=== PATIENT | male | born 1935 | race Caucasian/White ===

== ENCOUNTER 2022-05-21 02:06 | Inpatient (IN) ==
[2022-05-21] MEDS ORDERED: cefTRIAXone 1,000 MG in SODIUM CHLORIDE 0.9% 100 ML IV STA (02:22)
[2022-05-21] MEDS ORDERED: ONDANSETRON 4 MG/2 ML VIAL IV STA (02:22)
[2022-05-21] MEDS ORDERED: methylPREDNISolone SOD SUC 125 MG/2 ML VIAL IV STA (02:22)
[2022-05-21] MEDS ORDERED: ALBUTEROL/IPRATROPIUM 3 ML NEB RESP TX STA (02:22)
[2022-05-21 02:42] LABS: Basophils # 0.1 10*3/uL (0.0-0.2); Basophils % 0.6 % (0.0-0.8); Eosinophils # 0.3 10*3/uL (0.0-0.87); Eosinophils % 1.5 % (0.00-10.9); Hematocrit 36.6 VOL% (42.0-52.0); Hemoglobin 11.6 GM/DL (14.0-18.0); Immature Granulocytes % 0.6 %; Lymphocytes % 5.4 % (21.2-54.2); Mean Corpuscular HGB Conc 31.7 GM/DL (32-36); Mean Corpuscular Volume 84.1 FL (87-102); Mean Platelet Volume 12.1 FL (9.6-12.0); Monocytes # 1.4 10*3/uL (0.11-0.8); Monocytes % 7.7 % (1.7-12.7); Neutrophils % 84.2 % (38.7-73.9); Platelet Count 217 T/CUMM (130-400); Red Blood Count 4.35 MC/CUMM (3.8-5.5); Red Cell Distribution Width 16.6 % (9.3-17.3); White Blood Count 17.9 T/CUMM (4-12)
[2022-05-21] MEDS ORDERED: SODIUM CHLORIDE 0.9% 1,000 ML IV STA (02:47)
[2022-05-21 02:50] LABS: Arterial Base Excess iSTAT 15 MMOL/L (-2.5-2.5); Arterial Bicarbonate iSTAT 40.6 MMOL/L (20-26); Arterial O2 Saturation iSTAT 89 % (95-100); Arterial PCO2 iSTAT 55 MM HG (35-48); Arterial PO2 iSTAT 54 MM HG (80-95); Arterial Total CO2 iSTAT 42 MMO/L (23-27); Arterial pH iSTAT 7.476 (7.35-7.45)
[2022-05-21] MEDS ORDERED: ALBUTEROL NEB SOLN 5 MG/ML 20 ML/BOTTLE CONT NEB SCH (03:00)
[2022-05-21] MEDS ORDERED: ALBUTEROL 2.5 MG/3 ML NEB RESP TX ONE (03:01)
[2022-05-21] MEDS ORDERED: PIPERACILLIN/TAZOBACTAM 3,375 MG in SODIUM CHLORIDE 0.9% 100 ML IV STA (03:04)
[2022-05-21 03:05] LABS: Alanine Aminotransferase 14 U/L (16-61); Albumin 3.1 G/DL (3.4-5.0); Alkaline Phosphatase 102 U/L (45-117); Aspartate Amino Transferase 14 U/L (0-37); Bilirubin,Total < 0.39 MG/DL (0.20-1.00); Blood Urea Nitrogen 22 MG/DL (7-18); Calcium 8.9 MG/DL (8.5-10.1); Carbon Dioxide 39 MMOL/L (21-32); Chloride 92 MMOL/L (98-107); Glucose 122 MG/DL (74-106); Osmolality,Calculated 273.1 MOS/KG (273-304); Potassium 3.7 MMOL/L (3.5-5.1); Sodium 135 MMOL/L (136-145); Total Protein 6.5 G/DL (6.4-8.2)
[2022-05-21] MEDS ORDERED: ENOXAPARIN 100 MG/ML SYRINGE SUBCUT STA (03:11)
[2022-05-21 03:16] LABS: Bacteria,Urine Occasional /HPF (Few); Hyaline Casts,Urine 1 /LPF (0-3); RBC,Urine 2 /HPF (0-4)
[2022-05-21 03:17] LABS: Bilirubin,Urine Negative (Negative); Blood, Urine Negative (Negative); Glucose,Urine (UA) Negative (Negative); Ketones,Urine Negative (Negative); Nitrite,Urine Positive (Negative); Protein,Urine Trace mg/dL (Negative); Urine Appearance SL CLOUDY (Clear); Urine Color Yellow (Yellow); Urine Specific Gravity 1.015 (1.001-1.035); Urine Urobilinogen 0.2 eU/dL (<2.0); Urine pH 8.5 (4.5-8.0)
[2022-05-21] MEDS ORDERED: NOREPINEPHRINE 8 MG in SODIUM CHLORIDE 0.9% 242 ML IV SCH (03:22)
[2022-05-21] MEDS ORDERED: MEROPENEM 500 MG in SODIUM CHLORIDE 0.9% 100 ML IV ONE (04:41)
[2022-05-21] MEDS ORDERED: SODIUM CHLORIDE 0.9% 500 ML IV ONE (04:53)
[2022-05-21] MEDS: FAMOTIDINE 20 MG/2 ML VIAL IV SCH ×2 (05:18→20:25)
[2022-05-21] MEDS: SODIUM CHLORIDE 0.9% 1,000 ML IV SCH ×2 (05:23→23:36)
[2022-05-21] MEDS: ALBUTEROL 2.5 MG/3 ML NEB RESP TX PRN (07:52)
[2022-05-21] MEDS: ALBUTEROL/IPRATROPIUM 3 ML NEB RESP TX SCH ×3 (08:10→19:40)
[2022-05-21] MEDS: LEVOFLOXACIN INJ 750 MG/150 ML PREMIX IV SCH (10:13)
[2022-05-21] MEDS ORDERED: IPRATROPIUM 500 MCG/2.5 ML NEB RESP TX ONE (13:14)
[2022-05-21] MEDS ORDERED: ALBUTEROL 2.5 MG/3 ML NEB RESP TX PRN (16:18)
[2022-05-21] MEDS ORDERED: diphenhydrAMINE CAP 25 MG CAPSULE PO PRN (16:18)
[2022-05-21] MEDS ORDERED: SENNA 8.6 MG TABLET PO PRN (16:18)
[2022-05-21] MEDS ORDERED: HydrOXYzine PAMOATE 25 MG CAPSULE PO PRN (16:18)
[2022-05-21] MEDS ORDERED: MAGNESIUM HYDROXIDE SUSP 30 ML UDCUP PO PRN (16:18)
[2022-05-21] MEDS ORDERED: CARBOXYMETHYLCELLULOSE 1% OPH SOLN BOTH EYES PRN (16:18)
[2022-05-21] MEDS: LACTULOSE 20 GM/30 ML UDCUP PO SCH (16:55)
[2022-05-21] MEDS: prednisoLONE 15 MG/5 ML ORAL.SYR PO SCH (19:06)
[2022-05-21] MEDS: TAMSULOSIN 0.4 MG CAPSULE PO SCH (20:23)
[2022-05-21] MEDS: PREGABALIN 75 MG CAPSULE PO SCH (20:23)
[2022-05-21] MEDS: POLYETHYLENE GLYCOL POWDER 17 GM PACK PO SCH (20:24)
[2022-05-21] MEDS: MAGNESIUM HYDROXIDE SUSP 30 ML UDCUP PO SCH (20:24)
[2022-05-21] MEDS: PRIMIDONE 50 MG TABLET PO SCH (20:24)
[2022-05-21] MEDS: BACLOFEN 10 MG TABLET PO SCH (20:24)
[2022-05-21] MEDS: DULoxetine 30 MG CAPSULE PO SCH (20:24)
[2022-05-22] MEDS: ALBUTEROL/IPRATROPIUM 3 ML NEB RESP TX SCH ×4 (00:40→20:38)
[2022-05-22 05:06] LABS: Basophils # 0.1 10*3/uL (0.0-0.2); Basophils % 0.3 % (0.0-0.8); Eosinophils % 0.2 % (0.00-10.9); Hematocrit 31.6 VOL% (42.0-52.0); Hemoglobin 10.1 GM/DL (14.0-18.0); Immature Granulocytes % 0.5 %; Immature Granulocytes Absolute 0.12 #; Lymphocytes % 4.6 % (21.2-54.2); Mean Corpuscular Volume 84.5 FL (87-102); Mean Platelet Volume 12.3 FL (9.6-12.0); Monocytes % 4.6 % (1.7-12.7); Neutrophils % 89.8 % (38.7-73.9); Platelet Count 190 T/CUMM (130-400); Red Blood Count 3.74 MC/CUMM (3.8-5.5); Red Cell Distribution Width 16.8 % (9.3-17.3); White Blood Count 22.3 T/CUMM (4-12)
[2022-05-22 05:27] LABS: Alanine Aminotransferase 13 U/L (16-61); Albumin 2.6 G/DL (3.4-5.0); Alkaline Phosphatase 77 U/L (45-117); Aspartate Amino Transferase 12 U/L (0-37); Bilirubin,Total < 0.39 MG/DL (0.20-1.00); Blood Urea Nitrogen 21 MG/DL (7-18); Calcium 8.8 MG/DL (8.5-10.1); Carbon Dioxide 32 MMOL/L (21-32); Chloride 98 MMOL/L (98-107); Glucose 139 MG/DL (74-106); Osmolality,Calculated 274.1 MOS/KG (273-304); Sodium 135 MMOL/L (136-145)
[2022-05-22 06:35] LABS: Hypochromia Slight; Lymphocytes 4 % (20-55); Microcytosis Slight; Platelet Estimate Adequate; Total Cells Counted 100
[2022-05-22] MEDS: ALBUTEROL 2.5 MG/3 ML NEB RESP TX PRN ×2 (07:36→13:14)
[2022-05-22] MEDS: LEVOFLOXACIN INJ 750 MG/150 ML PREMIX IV SCH (08:55)
[2022-05-22] MEDS: MULTIVITAMIN (BEROCCA) TABLET PO SCH (09:15)
[2022-05-22] MEDS: PREGABALIN 75 MG CAPSULE PO SCH ×2 (09:15→22:51)
[2022-05-22] MEDS: BACLOFEN 10 MG TABLET PO SCH ×2 (09:15→22:51)
[2022-05-22] MEDS: TAMSULOSIN 0.4 MG CAPSULE PO SCH ×2 (09:15→22:51)
[2022-05-22] MEDS: ASPIRIN EC 81 MG TABLET PO SCH (09:15)
[2022-05-22] MEDS: LACTULOSE 20 GM/30 ML UDCUP PO SCH (09:16)
[2022-05-22] MEDS: prednisoLONE 15 MG/5 ML ORAL.SYR PO SCH (09:16)
[2022-05-22] MEDS: FAMOTIDINE 20 MG/2 ML VIAL IV SCH ×2 (09:17→22:51)
[2022-05-22] MEDS: POLYETHYLENE GLYCOL POWDER 17 GM PACK PO SCH ×2 (09:18→22:51)
[2022-05-22] MEDS: FLUTICASONE 50 MCG NASAL SPRAY 16 GM BOTTLE BOTH NARES SCH (09:28)
[2022-05-22] MEDS: NON-FORMULARY MEDICATION (Fluticasone Furoate-Vilanterol [Breo Ellipta] 100-25 mcg/dose Bl INH SCH (10:42)
[2022-05-22] MEDS: SODIUM CHLORIDE 0.9% 1,000 ML IV SCH ×2 (10:46→13:19)
[2022-05-22] MEDS: ACETAMINOPHEN 500 MG TABLET PO PRN (12:38)
[2022-05-22] MEDS: BISACODYL 10 MG SUPP RECTAL PRN (17:26)
[2022-05-22] MEDS ORDERED: IPRATROPIUM 500 MCG/2.5 ML NEB RESP TX ONE (19:13)
[2022-05-22] MEDS: DULoxetine 30 MG CAPSULE PO SCH (22:50)
[2022-05-22] MEDS: MAGNESIUM HYDROXIDE SUSP 30 ML UDCUP PO SCH (22:51)
[2022-05-22] MEDS: PRIMIDONE 50 MG TABLET PO SCH (22:51)
[2022-05-23] MEDS: ALBUTEROL/IPRATROPIUM 3 ML NEB RESP TX SCH ×4 (00:13→20:43)
[2022-05-23] MEDS: SODIUM CHLORIDE 0.9% 1,000 ML IV SCH ×3 (01:24→14:50)
[2022-05-23] MEDS: ACETAMINOPHEN 500 MG TABLET PO PRN ×2 (01:50→17:52)
[2022-05-23 04:10] LABS: Basophils # 0.1 10*3/uL (0.0-0.2); Basophils % 0.4 % (0.0-0.8); Eosinophils # 0.2 10*3/uL (0.0-0.87); Eosinophils % 1.3 % (0.00-10.9); Hemoglobin 9.6 GM/DL (14.0-18.0); Immature Granulocytes % 0.7 %; Immature Granulocytes Absolute 0.11 #; Lymphocytes # 0.9 10*3/uL (1.4-4.0); Lymphocytes % 6.2 % (21.2-54.2); Mean Corpuscular Volume 83.8 FL (87-102); Mean Platelet Volume 11.9 FL (9.6-12.0); Monocytes # 1.1 10*3/uL (0.11-0.8); Monocytes % 7.3 % (1.7-12.7); Neutrophils % 84.1 % (38.7-73.9); Platelet Count 171 T/CUMM (130-400); Red Blood Count 3.58 MC/CUMM (3.8-5.5); Red Cell Distribution Width 16.7 % (9.3-17.3); White Blood Count 15.1 T/CUMM (4-12)
[2022-05-23 04:34] LABS: Albumin 2.3 G/DL (3.4-5.0); Bilirubin,Total 0.4 MG/DL (0.20-1.00); Calcium 8.6 MG/DL (8.5-10.1); Osmolality,Calculated 269.2 MOS/KG (273-304); Potassium 3.6 MMOL/L (3.5-5.1); Total Protein 5.8 G/DL (6.4-8.2)
[2022-05-23] MEDS: PREGABALIN 75 MG CAPSULE PO SCH ×2 (09:30→21:09)
[2022-05-23] MEDS: ASPIRIN EC 81 MG TABLET PO SCH (09:30)
[2022-05-23] MEDS: LEVOFLOXACIN INJ 750 MG/150 ML PREMIX IV SCH (09:30)
[2022-05-23] MEDS: MULTIVITAMIN (BEROCCA) TABLET PO SCH (09:30)
[2022-05-23] MEDS: prednisoLONE 15 MG/5 ML ORAL.SYR PO SCH (09:30)
[2022-05-23] MEDS: BACLOFEN 10 MG TABLET PO SCH ×2 (09:30→21:09)
[2022-05-23] MEDS: TAMSULOSIN 0.4 MG CAPSULE PO SCH ×2 (09:30→21:09)
[2022-05-23] MEDS: FLUTICASONE 50 MCG NASAL SPRAY 16 GM BOTTLE BOTH NARES SCH (09:30)
[2022-05-23] MEDS: NON-FORMULARY MEDICATION (Fluticasone Furoate-Vilanterol [Breo Ellipta] 100-25 mcg/dose Bl INH SCH (09:48)
[2022-05-23] MEDS: FAMOTIDINE 20 MG/2 ML VIAL IV SCH ×2 (09:48→21:10)
[2022-05-23] MEDS: POLYETHYLENE GLYCOL POWDER 17 GM PACK PO SCH ×2 (09:49→20:54)
[2022-05-23] MEDS: LACTULOSE 20 GM/30 ML UDCUP PO SCH (09:49)
[2022-05-23] MEDS: ONDANSETRON 4 MG/2 ML VIAL IV PRN (12:10)
[2022-05-23] MEDS: ALBUTEROL 2.5 MG/3 ML NEB RESP TX PRN (14:06)
[2022-05-23] MEDS: ENOXAPARIN 40 MG/0.4 ML SYRINGE SUBCUT SCH (16:40)
[2022-05-23] MEDS: MAGNESIUM HYDROXIDE SUSP 30 ML UDCUP PO SCH (20:54)
[2022-05-23] MEDS: DULoxetine 30 MG CAPSULE PO SCH (21:09)
[2022-05-23] MEDS: PRIMIDONE 50 MG TABLET PO SCH (21:09)
[2022-05-23] MEDS ORDERED: ALUM/MAG/SIMETH/LIDO VISC 1:1 30 ML BOTTLE PO ONE (23:24)
[2022-05-24] MEDS: ALBUTEROL/IPRATROPIUM 3 ML NEB RESP TX SCH ×4 (00:45→20:40)
[2022-05-24] MEDS: SODIUM CHLORIDE 0.9% 1,000 ML IV SCH ×2 (04:10→12:20)
[2022-05-24 04:42] LABS: Basophils # 0.1 10*3/uL (0.0-0.2); Basophils % 0.8 % (0.0-0.8); Eosinophils # 0.2 10*3/uL (0.0-0.87); Eosinophils % 2.2 % (0.00-10.9); Hematocrit 33.9 VOL% (42.0-52.0); Hemoglobin 10.6 GM/DL (14.0-18.0); Immature Granulocytes % 0.6 %; Immature Granulocytes Absolute 0.06 #; Lymphocytes # 1.1 10*3/uL (1.4-4.0); Lymphocytes % 10.7 % (21.2-54.2); Mean Corpuscular HGB Conc 31.3 GM/DL (32-36); Mean Corpuscular Volume 85.6 FL (87-102); Mean Platelet Volume 12.2 FL (9.6-12.0); Monocytes # 0.8 10*3/uL (0.11-0.8); Monocytes % 7.9 % (1.7-12.7); Neutrophils % 77.8 % (38.7-73.9); Platelet Count 184 T/CUMM (130-400); Red Blood Count 3.96 MC/CUMM (3.8-5.5); Red Cell Distribution Width 16.2 % (9.3-17.3); White Blood Count 10.6 T/CUMM (4-12)
[2022-05-24] MEDS: ONDANSETRON 4 MG/2 ML VIAL IV PRN ×2 (06:06→14:48)
[2022-05-24] MEDS: FAMOTIDINE 20 MG/2 ML VIAL IV SCH (10:01)
[2022-05-24] MEDS: MULTIVITAMIN (BEROCCA) TABLET PO SCH (10:02)
[2022-05-24] MEDS: BACLOFEN 10 MG TABLET PO SCH ×2 (10:02→21:44)
[2022-05-24] MEDS: PREGABALIN 75 MG CAPSULE PO SCH ×2 (10:02→21:45)
[2022-05-24] MEDS: TAMSULOSIN 0.4 MG CAPSULE PO SCH ×2 (10:02→21:45)
[2022-05-24] MEDS: ASPIRIN EC 81 MG TABLET PO SCH (10:02)
[2022-05-24] MEDS: prednisoLONE 15 MG/5 ML ORAL.SYR PO SCH (10:03)
[2022-05-24] MEDS: POLYETHYLENE GLYCOL POWDER 17 GM PACK PO SCH ×2 (10:03→21:45)
[2022-05-24] MEDS: LEVOFLOXACIN INJ 750 MG/150 ML PREMIX IV SCH (10:03)
[2022-05-24] MEDS: FLUTICASONE 50 MCG NASAL SPRAY 16 GM BOTTLE BOTH NARES SCH (10:03)
[2022-05-24] MEDS: LACTULOSE 20 GM/30 ML UDCUP PO SCH (10:03)
[2022-05-24] MEDS: NON-FORMULARY MEDICATION (Fluticasone Furoate-Vilanterol [Breo Ellipta] 100-25 mcg/dose Bl INH SCH (10:03)
[2022-05-24] MEDS: ACETAMINOPHEN 500 MG TABLET PO PRN (12:31)
[2022-05-24] MEDS: ENOXAPARIN 40 MG/0.4 ML SYRINGE SUBCUT SCH (14:49)
[2022-05-24] MEDS: MORPHINE 2 MG/1 ML SYRINGE IV PRN ×2 (14:49→21:50)
[2022-05-24] MEDS: FLUCONAZOLE INJ 200 MG/100 ML PREMIX IV SCH (14:50)
[2022-05-24] MEDS: MAGNESIUM HYDROXIDE SUSP 30 ML UDCUP PO SCH (21:45)
[2022-05-24] MEDS: PRIMIDONE 50 MG TABLET PO SCH (21:45)
[2022-05-24] MEDS: DULoxetine 30 MG CAPSULE PO SCH (21:45)
[2022-05-24] MEDS: FAMOTIDINE 20 MG TABLET PO SCH (22:08)
[2022-05-25] MEDS: ALBUTEROL/IPRATROPIUM 3 ML NEB RESP TX SCH ×4 (01:07→19:04)
[2022-05-25] MEDS: SODIUM CHLORIDE 0.9% 1,000 ML IV SCH ×2 (02:03→18:32)
[2022-05-25] MEDS: ACETAMINOPHEN 500 MG TABLET PO PRN (03:28)
[2022-05-25] MEDS: MORPHINE 2 MG/1 ML SYRINGE IV PRN ×3 (03:30→18:46)
[2022-05-25 05:29] LABS: Basophils # 0.1 10*3/uL (0.0-0.2); Basophils % 0.8 % (0.0-0.8); Eosinophils # 0.3 10*3/uL (0.0-0.87); Eosinophils % 3.1 % (0.00-10.9); Hematocrit 34.7 VOL% (42.0-52.0); Hemoglobin 10.9 GM/DL (14.0-18.0); Immature Granulocytes % 0.8 %; Immature Granulocytes Absolute 0.07 #; Lymphocytes # 0.9 10*3/uL (1.4-4.0); Lymphocytes % 9.9 % (21.2-54.2); Mean Corpuscular HGB Conc 31.4 GM/DL (32-36); Mean Platelet Volume 12.9 FL (9.6-12.0); Monocytes # 0.8 10*3/uL (0.11-0.8); Monocytes % 8.7 % (1.7-12.7); Neutrophils % 76.7 % (38.7-73.9); Platelet Count 189 T/CUMM (130-400); Red Blood Count 4.08 MC/CUMM (3.8-5.5); White Blood Count 8.7 T/CUMM (4-12)
[2022-05-25 08:34] LABS: Albumin 2.4 G/DL (3.4-5.0); Bilirubin,Total 0.4 MG/DL (0.20-1.00); Calcium 9.3 MG/DL (8.5-10.1); Potassium 3.8 MMOL/L (3.5-5.1)
[2022-05-25] MEDS: FLUCONAZOLE INJ 200 MG/100 ML PREMIX IV SCH (09:07)
[2022-05-25] MEDS: MULTIVITAMIN (BEROCCA) TABLET PO SCH (09:08)
[2022-05-25] MEDS: TAMSULOSIN 0.4 MG CAPSULE PO SCH ×2 (09:08→22:03)
[2022-05-25] MEDS: ENOXAPARIN 40 MG/0.4 ML SYRINGE SUBCUT SCH (09:08)
[2022-05-25] MEDS: CEFUROXIME 500 MG TABLET PO SCH ×2 (09:08→22:03)
[2022-05-25] MEDS: PREGABALIN 75 MG CAPSULE PO SCH ×2 (09:09→22:03)
[2022-05-25] MEDS: BISACODYL 10 MG SUPP RECTAL PRN (09:09)
[2022-05-25] MEDS: LACTULOSE 20 GM/30 ML UDCUP PO SCH (09:09)
[2022-05-25] MEDS: ASPIRIN EC 81 MG TABLET PO SCH (09:09)
[2022-05-25] MEDS: FAMOTIDINE 20 MG TABLET PO SCH (09:09)
[2022-05-25] MEDS: BACLOFEN 10 MG TABLET PO SCH ×2 (09:09→22:03)
[2022-05-25] MEDS: POLYETHYLENE GLYCOL POWDER 17 GM PACK PO SCH ×2 (09:09→22:03)
[2022-05-25] MEDS: prednisoLONE 15 MG/5 ML ORAL.SYR PO SCH (09:10)
[2022-05-25] MEDS: NON-FORMULARY MEDICATION (Fluticasone Furoate-Vilanterol [Breo Ellipta] 100-25 mcg/dose Bl INH SCH (10:46)
[2022-05-25] MEDS: FLUTICASONE 50 MCG NASAL SPRAY 16 GM BOTTLE BOTH NARES SCH (14:37)
[2022-05-25] MEDS: MAGNESIUM HYDROXIDE SUSP 30 ML UDCUP PO SCH (22:03)
[2022-05-25] MEDS: PRIMIDONE 50 MG TABLET PO SCH (22:03)
[2022-05-25] MEDS: DULoxetine 30 MG CAPSULE PO SCH (22:03)
[2022-05-25] MEDS: PANTOPRAZOLE 40 MG VIAL IV SCH (22:18)
[2022-05-26] MEDS: ALBUTEROL/IPRATROPIUM 3 ML NEB RESP TX SCH ×2 (00:30→07:35)
[2022-05-26] MEDS: METOCLOPRAMIDE 10 MG/2 ML VIAL IV SCH ×3 (01:37→11:48)
[2022-05-26] MEDS: MORPHINE 2 MG/1 ML SYRINGE IV PRN (03:17)
[2022-05-26 05:07] LABS: Basophils # 0.1 10*3/uL (0.0-0.2); Basophils % 0.7 % (0.0-0.8); Eosinophils # 0.4 10*3/uL (0.0-0.87); Eosinophils % 4.2 % (0.00-10.9); Hematocrit 33.7 VOL% (42.0-52.0); Hemoglobin 10.2 GM/DL (14.0-18.0); Immature Granulocytes % 0.8 %; Immature Granulocytes Absolute 0.07 #; Lymphocytes # 1.1 10*3/uL (1.4-4.0); Lymphocytes % 13.1 % (21.2-54.2); Mean Corpuscular HGB Conc 30.3 GM/DL (32-36); Mean Corpuscular Volume 86.4 FL (87-102); Mean Platelet Volume 11.8 FL (9.6-12.0); Monocytes % 12.2 % (1.7-12.7); Platelet Count 201 T/CUMM (130-400); Red Cell Distribution Width 16.2 % (9.3-17.3); White Blood Count 8.3 T/CUMM (4-12)
[2022-05-26 05:33] LABS: Alanine Aminotransferase 14 U/L (16-61); Albumin 2.3 G/DL (3.4-5.0); Alkaline Phosphatase 65 U/L (45-117); Aspartate Amino Transferase 16 U/L (0-37); Bilirubin,Total < 0.39 MG/DL (0.20-1.00); Blood Urea Nitrogen 8 MG/DL (7-18); Calcium 9.2 MG/DL (8.5-10.1); Carbon Dioxide 33 MMOL/L (21-32); Chloride 98 MMOL/L (98-107); Glucose 79 MG/DL (74-106); Osmolality,Calculated 271.7 MOS/KG (273-304); Potassium 3.3 MMOL/L (3.5-5.1); Sodium 138 MMOL/L (136-145); Total Protein 5.5 G/DL (6.4-8.2)
[2022-05-26] MEDS: SODIUM CHLORIDE 0.9% 1,000 ML IV SCH (06:37)
[2022-05-26] MEDS ORDERED: LINACLOTIDE 145 MCG CAPSULE PO SCH (07:30)
[2022-05-26] MEDS ORDERED: POTASSIUM CHLORIDE 20 MEQ TABLET PO ONE (08:45)
[2022-05-26] MEDS: POLYETHYLENE GLYCOL POWDER 17 GM PACK PO SCH ×2 (09:20→16:03)
[2022-05-26] MEDS: PREGABALIN 75 MG CAPSULE PO SCH (09:22)
[2022-05-26] MEDS: CEFUROXIME 500 MG TABLET PO SCH (09:22)
[2022-05-26] MEDS: TAMSULOSIN 0.4 MG CAPSULE PO SCH (09:22)
[2022-05-26] MEDS: BACLOFEN 10 MG TABLET PO SCH (09:23)
[2022-05-26] MEDS: ASPIRIN EC 81 MG TABLET PO SCH (09:23)
[2022-05-26] MEDS: MULTIVITAMIN (BEROCCA) TABLET PO SCH (09:23)
[2022-05-26] MEDS: ENOXAPARIN 40 MG/0.4 ML SYRINGE SUBCUT SCH (09:24)
[2022-05-26] MEDS: FLUCONAZOLE INJ 200 MG/100 ML PREMIX IV SCH (09:24)
[2022-05-26] MEDS: prednisoLONE 15 MG/5 ML ORAL.SYR PO SCH (09:25)
[2022-05-26] MEDS: PANTOPRAZOLE 40 MG VIAL IV SCH (09:25)
[2022-05-26] MEDS: FLUTICASONE 50 MCG NASAL SPRAY 16 GM BOTTLE BOTH NARES SCH (09:27)
[2022-05-26] MEDS: NON-FORMULARY MEDICATION (Fluticasone Furoate-Vilanterol [Breo Ellipta] 100-25 mcg/dose Bl INH SCH (09:27)
[2022-05-26] MEDS ORDERED: oxyCODONE/ACETAMINOPHEN 5-325 MG TABLET PO PRN (09:53)
[2022-05-26 12:21] VITALS: BP 165/66
== END 2022-05-26 16:37 | DRG 871 ==
LOC: N.ED 02:06 → SUATTDRO 04:32 → N.EDINP 04:32 → N.CC 05:35 → N.5E 05-24 09:21
PROVIDERS: ADMIT Internal Medicine; ATTEND Internal Medicine

== ENCOUNTER 2022-06-07 07:36 | Inpatient (IN) ==
[2022-06-07] MEDS ORDERED: SODIUM CHLORIDE 0.9% 1,000 ML IV STA (07:50)
[2022-06-07 08:40] LABS: Basophils # 0.1 10*3/uL (0.0-0.2); Basophils % 0.6 % (0.0-0.8); Eosinophils # 0.3 10*3/uL (0.0-0.87); Eosinophils % 1.2 % (0.00-10.9); Hematocrit 36.5 VOL% (42.0-52.0); Hemoglobin 11.8 GM/DL (14.0-18.0); Immature Granulocytes Absolute 0.21 #; Lymphocytes # 0.9 10*3/uL (1.4-4.0); Lymphocytes % 4.1 % (21.2-54.2); Mean Corpuscular HGB Conc 32.3 GM/DL (32-36); Mean Corpuscular Volume 82.6 FL (87-102); Mean Platelet Volume 11.4 FL (9.6-12.0); Monocytes % 9.2 % (1.7-12.7); Neutrophils % 83.9 % (38.7-73.9); Platelet Count 271 T/CUMM (130-400); Red Blood Count 4.42 MC/CUMM (3.8-5.5); Red Cell Distribution Width 16.7 % (9.3-17.3); White Blood Count 21.8 T/CUMM (4-12)
[2022-06-07 08:50] LABS: INR 0.9; PT Patient Result 10.4 SECS (10.1-12.1); Partial Thromboplastin Time 20.1 SECS (23.7-32.9)
[2022-06-07 08:56] LABS: Bacteria,Urine Occasional /HPF (Few); Hyaline Casts,Urine 4 /LPF (0-3); Mucus,Urine Few /LPF (Occasional); RBC,Urine 11 /HPF (0-4)
[2022-06-07 08:57] LABS: Bilirubin,Urine Negative (Negative); Blood, Urine Small mg/dL (Negative); Glucose,Urine (UA) Negative (Negative); Ketones,Urine Negative (Negative); Nitrite,Urine Negative (Negative); Protein,Urine Negative (Negative); Urine Appearance Slightly Hazy (Clear); Urine Color Dark Yellow (Yellow); Urine Urobilinogen 0.2 eU/dL (<2.0); Urine pH 7.5 (4.5-8.0)
[2022-06-07 08:59] LABS: Bilirubin,Total 0.4 MG/DL (0.20-1.00); Osmolality,Calculated 269.4 MOS/KG (273-304); Potassium 3.7 MMOL/L (3.5-5.1); Total Protein 6.9 G/DL (6.4-8.2)
[2022-06-07 09:00] LABS: Band Neutrophils 1 % (0-10); Hypochromia Slight; Lymphocytes 7 % (20-55); Microcytosis Slight; Platelet Estimate Adequate; Total Cells Counted 100
[2022-06-07 09:26] LABS: Barbiturates Screen,Urine Positive (Negative); Benzodiazepines Screen,Urine Negative (Negative); Cannabinoid Screen,Urine Negative (Negative); Opiate Screen,Urine Positive (Negative); Phencyclidine Screen,Urine Negative (Negative)
[2022-06-07] MEDS ORDERED: cefTRIAXone 2,000 MG in SODIUM CHLORIDE 0.9% 100 ML IV ONE (09:29)
[2022-06-07] MEDS ORDERED: ALBUTEROL 2.5 MG/3 ML NEB RESP TX PRN (11:01)
[2022-06-07] MEDS ORDERED: SODIUM CHLORIDE 0.9% 500 ML IV STA (11:48)
[2022-06-07] MEDS: SODIUM CHLORIDE 0.9% 1,000 ML IV SCH (12:15)
[2022-06-07 12:29] LABS: % Iron Saturation 4.8 % (18-50)
[2022-06-07 12:31] LABS: Folate 15.97 NG/ML (5.38-24.0)
[2022-06-07] MEDS ORDERED: DOXYCYCLINE HYCLATE INJ 100 MG in SODIUM CHLORIDE 0.9% 100 ML IV SCH (14:00)
[2022-06-07] MEDS: ALBUTEROL/IPRATROPIUM 3 ML NEB RESP TX SCH ×2 (14:17→19:30)
[2022-06-07] MEDS ORDERED: MAGNESIUM HYDROXIDE SUSP 30 ML UDCUP PO PRN (14:40)
[2022-06-07] MEDS ORDERED: BISACODYL 10 MG SUPP RECTAL PRN (14:40)
[2022-06-07 15:13] LABS: Arterial Base Excess iSTAT 10 MMOL/L (-2.5-2.5); Arterial Bicarbonate iSTAT 36.8 MMOL/L (20-26); Arterial O2 Saturation iSTAT 97 % (95-100); Arterial PCO2 iSTAT 56 MM HG (35-48); Arterial PO2 iSTAT 91 MM HG (80-95); Arterial Total CO2 iSTAT 38 MMO/L (23-27); Arterial pH iSTAT 7.427 (7.35-7.45)
[2022-06-07] MEDS: MEROPENEM 500 MG in SODIUM CHLORIDE 0.9% 100 ML IV SCH ×2 (16:55→21:23)
[2022-06-07] MEDS: INSULIN REGULAR 100 UNIT/ML SUBCUT SCH ×2 (17:20→21:22)
[2022-06-07] MEDS: ACETAMINOPHEN 325 MG TABLET PO PRN (21:20)
[2022-06-07] MEDS: ONDANSETRON 4 MG/2 ML VIAL IV PRN (21:21)
[2022-06-07] MEDS: DULoxetine 30 MG CAPSULE PO SCH (21:21)
[2022-06-07] MEDS: TAMSULOSIN 0.4 MG CAPSULE PO SCH (21:21)
[2022-06-07] MEDS: ENOXAPARIN 40 MG/0.4 ML SYRINGE SUBCUT SCH (21:22)
[2022-06-07] MEDS: POLYETHYLENE GLYCOL POWDER 17 GM PACK PO SCH (21:29)
[2022-06-07] MEDS: PRIMIDONE 50 MG TABLET PO SCH (21:30)
[2022-06-08] MEDS: ALBUTEROL/IPRATROPIUM 3 ML NEB RESP TX SCH ×4 (00:20→18:13)
[2022-06-08] MEDS: MEROPENEM 500 MG in SODIUM CHLORIDE 0.9% 100 ML IV SCH ×5 (01:43→20:56)
[2022-06-08 05:26] LABS: Basophils # 0.2 10*3/uL (0.0-0.2); Basophils % 0.9 % (0.0-0.8); Eosinophils # 0.1 10*3/uL (0.0-0.87); Eosinophils % 0.4 % (0.00-10.9); Hematocrit 33.4 VOL% (42.0-52.0); Hemoglobin 10.7 GM/DL (14.0-18.0); Immature Granulocytes % 0.9 %; Lymphocytes # 1.4 10*3/uL (1.4-4.0); Lymphocytes % 6.3 % (21.2-54.2); Mean Corpuscular Volume 82.5 FL (87-102); Monocytes # 1.3 10*3/uL (0.11-0.8); Monocytes % 5.8 % (1.7-12.7); Neutrophils % 85.7 % (38.7-73.9); Platelet Count 224 T/CUMM (130-400); Red Blood Count 4.05 MC/CUMM (3.8-5.5); Red Cell Distribution Width 17.1 % (9.3-17.3); White Blood Count 21.6 T/CUMM (4-12)
[2022-06-08 05:34] LABS: Eosinophils 1 % (0-10); Lymphocytes 8 % (20-55); Platelet Estimate Adequate; Total Cells Counted 100
[2022-06-08 05:59] LABS: Albumin 2.3 G/DL (3.4-5.0); Bilirubin,Total 0.5 MG/DL (0.20-1.00); Calcium 8.2 MG/DL (8.5-10.1); Osmolality,Calculated 282.4 MOS/KG (273-304); Potassium 3.8 MMOL/L (3.5-5.1); Thyroid Stimulating Hormone 0.976 uIU/ml (0.358-3.74)
[2022-06-08] MEDS: INSULIN REGULAR 100 UNIT/ML SUBCUT SCH ×4 (07:47→20:58)
[2022-06-08] MEDS: LACTULOSE 20 GM/30 ML UDCUP PO SCH (08:53)
[2022-06-08] MEDS: NON-FORMULARY MEDICATION (Fluticasone Furoate-Vilanterol [Breo Ellipta] 100-25 mcg/dose Bl INH SCH (08:53)
[2022-06-08] MEDS: TAMSULOSIN 0.4 MG CAPSULE PO SCH ×2 (08:53→20:55)
[2022-06-08] MEDS: ASPIRIN EC 81 MG TABLET PO SCH (08:53)
[2022-06-08] MEDS: LINACLOTIDE 145 MCG CAPSULE PO SCH (08:53)
[2022-06-08] MEDS ORDERED: cefTRIAXone 1,000 MG in SODIUM CHLORIDE 0.9% 100 ML IV SCH (10:00)
[2022-06-08] MEDS: METOCLOPRAMIDE 5 MG TABLET PO SCH (10:07)
[2022-06-08] MEDS: predniSONE 5 MG TABLET PO SCH (10:07)
[2022-06-08] MEDS: PANTOPRAZOLE 40 MG TABLET PO SCH (10:07)
[2022-06-08] MEDS: POLYETHYLENE GLYCOL POWDER 17 GM PACK PO SCH ×2 (10:07→20:57)
[2022-06-08] MEDS: FLUTICASONE 50 MCG NASAL SPRAY 16 GM BOTTLE BOTH NARES SCH (10:18)
[2022-06-08] MEDS: SODIUM CHLORIDE 0.9% 1,000 ML IV SCH (10:18)
[2022-06-08] MEDS: FERRIC GLUCONATE COMPLEX 125 MG in SODIUM CHLORIDE 0.9% 100 ML IV SCH (11:59)
[2022-06-08] MEDS: LACTATED RINGERS 1,000 ML IV SCH (14:59)
[2022-06-08] MEDS: ACETAMINOPHEN 325 MG TABLET PO PRN (19:38)
[2022-06-08] MEDS: ONDANSETRON 4 MG/2 ML VIAL IV PRN ×2 (19:38→23:08)
[2022-06-08] MEDS: ENOXAPARIN 40 MG/0.4 ML SYRINGE SUBCUT SCH (20:55)
[2022-06-08] MEDS: PRIMIDONE 50 MG TABLET PO SCH (20:55)
[2022-06-08] MEDS: DULoxetine 30 MG CAPSULE PO SCH (20:55)
[2022-06-08] MEDS: ALUMINUM/MAGNES/SIMETH MAX STR 30 ML UDCUP PO PRN (23:33)
[2022-06-09] MEDS: ALBUTEROL/IPRATROPIUM 3 ML NEB RESP TX SCH ×4 (00:02→19:32)
[2022-06-09] MEDS: ONDANSETRON 4 MG/2 ML VIAL IV PRN ×3 (02:12→23:28)
[2022-06-09] MEDS: MEROPENEM 500 MG in SODIUM CHLORIDE 0.9% 100 ML IV SCH ×4 (03:00→21:31)
[2022-06-09] MEDS: LACTATED RINGERS 1,000 ML IV SCH ×2 (05:10→18:17)
[2022-06-09 05:33] LABS: Basophils # 0.1 10*3/uL (0.0-0.2); Basophils % 0.7 % (0.0-0.8); Eosinophils # 0.4 10*3/uL (0.0-0.87); Hemoglobin 10.3 GM/DL (14.0-18.0); Immature Granulocytes % 1.5 %; Immature Granulocytes Absolute 0.18 #; Lymphocytes # 0.8 10*3/uL (1.4-4.0); Lymphocytes % 6.3 % (21.2-54.2); Mean Corpuscular HGB Conc 32.2 GM/DL (32-36); Mean Corpuscular Volume 83.8 FL (87-102); Mean Platelet Volume 12.7 FL (9.6-12.0); Monocytes # 0.7 10*3/uL (0.11-0.8); Monocytes % 6.1 % (1.7-12.7); Neutrophils % 82.4 % (38.7-73.9); Platelet Count 197 T/CUMM (130-400); Red Blood Count 3.82 MC/CUMM (3.8-5.5); Red Cell Distribution Width 16.9 % (9.3-17.3)
[2022-06-09 05:56] LABS: Albumin 2.3 G/DL (3.4-5.0); Bilirubin,Total 0.4 MG/DL (0.20-1.00); Osmolality,Calculated 274.7 MOS/KG (273-304); Potassium 3.2 MMOL/L (3.5-5.1)
[2022-06-09 06:00] LABS: Anisocytosis 1+; Hypochromia Slight; Platelet Estimate Normal
[2022-06-09] MEDS: ALUMINUM/MAGNES/SIMETH MAX STR 30 ML UDCUP PO PRN (07:24)
[2022-06-09] MEDS: INSULIN REGULAR 100 UNIT/ML SUBCUT SCH ×4 (07:38→21:33)
[2022-06-09] MEDS: FERRIC GLUCONATE COMPLEX 125 MG in SODIUM CHLORIDE 0.9% 100 ML IV SCH (08:33)
[2022-06-09] MEDS: POLYETHYLENE GLYCOL POWDER 17 GM PACK PO SCH ×2 (08:33→21:33)
[2022-06-09] MEDS: TAMSULOSIN 0.4 MG CAPSULE PO SCH ×2 (08:35→21:32)
[2022-06-09] MEDS: LACTULOSE 20 GM/30 ML UDCUP PO SCH (08:36)
[2022-06-09] MEDS: predniSONE 5 MG TABLET PO SCH (08:36)
[2022-06-09] MEDS: PANTOPRAZOLE 40 MG TABLET PO SCH ×2 (08:36→21:32)
[2022-06-09] MEDS: LINACLOTIDE 145 MCG CAPSULE PO SCH (08:36)
[2022-06-09] MEDS: FLUTICASONE 50 MCG NASAL SPRAY 16 GM BOTTLE BOTH NARES SCH (08:40)
[2022-06-09] MEDS: NON-FORMULARY MEDICATION (Fluticasone Furoate-Vilanterol [Breo Ellipta] 100-25 mcg/dose Bl INH SCH (08:40)
[2022-06-09] MEDS: ASPIRIN EC 81 MG TABLET PO SCH (08:40)
[2022-06-09] MEDS: METOCLOPRAMIDE 5 MG TABLET PO SCH (08:40)
[2022-06-09] MEDS ORDERED: POTASSIUM CHLORIDE 20 MEQ TABLET PO PRN (16:18)
[2022-06-09] MEDS: DULoxetine 30 MG CAPSULE PO SCH (21:32)
[2022-06-09] MEDS: PRIMIDONE 50 MG TABLET PO SCH (21:32)
[2022-06-09] MEDS: ENOXAPARIN 40 MG/0.4 ML SYRINGE SUBCUT SCH (21:33)
[2022-06-10] MEDS: ACETAMINOPHEN 325 MG TABLET PO PRN ×2 (00:03→08:35)
[2022-06-10] MEDS: ALBUTEROL/IPRATROPIUM 3 ML NEB RESP TX SCH ×3 (00:14→13:58)
[2022-06-10] MEDS: MEROPENEM 500 MG in SODIUM CHLORIDE 0.9% 100 ML IV SCH ×2 (05:00→08:32)
[2022-06-10 07:02] LABS: Basophils # 0.1 10*3/uL (0.0-0.2); Basophils % 0.8 % (0.0-0.8); Eosinophils # 0.1 10*3/uL (0.0-0.87); Eosinophils % 1.9 % (0.00-10.9); Hematocrit 30.7 VOL% (42.0-52.0); Hemoglobin 9.5 GM/DL (14.0-18.0); Immature Granulocytes % 0.5 %; Immature Granulocytes Absolute 0.04 #; Lymphocytes # 0.8 10*3/uL (1.4-4.0); Lymphocytes % 11.2 % (21.2-54.2); Mean Corpuscular HGB Conc 30.9 GM/DL (32-36); Mean Corpuscular Volume 83.2 FL (87-102); Mean Platelet Volume 12.6 FL (9.6-12.0); Monocytes # 0.6 10*3/uL (0.11-0.8); Monocytes % 7.8 % (1.7-12.7); Neutrophils % 77.8 % (38.7-73.9); Platelet Count 200 T/CUMM (130-400); Red Blood Count 3.69 MC/CUMM (3.8-5.5); Red Cell Distribution Width 16.5 % (9.3-17.3); White Blood Count 7.3 T/CUMM (4-12)
[2022-06-10 07:25] LABS: Albumin 2.6 G/DL (3.4-5.0); Bilirubin,Total 0.5 MG/DL (0.20-1.00); Calcium 9.2 MG/DL (8.5-10.1); Potassium 3.4 MMOL/L (3.5-5.1); Total Protein 6.2 G/DL (6.4-8.2)
[2022-06-10] MEDS: ALUMINUM/MAGNES/SIMETH MAX STR 30 ML UDCUP PO PRN (07:33)
[2022-06-10] MEDS: INSULIN REGULAR 100 UNIT/ML SUBCUT SCH ×2 (08:00→12:28)
[2022-06-10] MEDS: FERRIC GLUCONATE COMPLEX 125 MG in SODIUM CHLORIDE 0.9% 100 ML IV SCH (08:32)
[2022-06-10] MEDS: POLYETHYLENE GLYCOL POWDER 17 GM PACK PO SCH (08:34)
[2022-06-10] MEDS: LINACLOTIDE 145 MCG CAPSULE PO SCH (08:34)
[2022-06-10] MEDS: LACTATED RINGERS 1,000 ML IV SCH (08:34)
[2022-06-10] MEDS: ASPIRIN EC 81 MG TABLET PO SCH (08:35)
[2022-06-10] MEDS: METOCLOPRAMIDE 5 MG TABLET PO SCH (08:35)
[2022-06-10] MEDS: TAMSULOSIN 0.4 MG CAPSULE PO SCH (08:35)
[2022-06-10] MEDS: LACTULOSE 20 GM/30 ML UDCUP PO SCH (08:36)
[2022-06-10] MEDS: predniSONE 5 MG TABLET PO SCH (08:36)
[2022-06-10] MEDS: FLUTICASONE 50 MCG NASAL SPRAY 16 GM BOTTLE BOTH NARES SCH (08:37)
[2022-06-10] MEDS: PANTOPRAZOLE 40 MG TABLET PO SCH (08:37)
[2022-06-10] MEDS: NON-FORMULARY MEDICATION (Fluticasone Furoate-Vilanterol [Breo Ellipta] 100-25 mcg/dose Bl INH SCH (08:38)
[2022-06-10] MEDS: ONDANSETRON 4 MG/2 ML VIAL IV PRN (08:56)
[2022-06-10] MEDS ORDERED: AMOXICILLIN 500 MG CAPSULE PO SCH (12:00)
[2022-06-10 16:14] VITALS: BP 136/56
[2022-06-10] MEDS ORDERED: CEFUROXIME 250 MG TABLET PO SCH (17:00)
== END 2022-06-10 16:22 | DRG 871 ==
LOC: N.ED 07:36 → N.EDINP 11:02 → SUATTDRO 11:02 → N.3E 11:24
PROVIDERS: ADMIT Internal Medicine; ATTEND Internal Medicine

== ENCOUNTER 2022-06-19 12:04 | Inpatient (IN) ==
[2022-06-19 12:52] LABS: Basophils # 0.1 10*3/uL (0.0-0.2); Basophils % 0.5 % (0.0-0.8); Eosinophils # 0.4 10*3/uL (0.0-0.87); Eosinophils % 1.5 % (0.00-10.9); Hematocrit 37.7 VOL% (42.0-52.0); Immature Granulocytes % 0.5 %; Immature Granulocytes Absolute 0.11 #; Lymphocytes # 1.7 10*3/uL (1.4-4.0); Lymphocytes % 7.2 % (21.2-54.2); Mean Corpuscular HGB Conc 31.8 GM/DL (32-36); Mean Platelet Volume 12.8 FL (9.6-12.0); Monocytes % 4.2 % (1.7-12.7); Neutrophils % 86.1 % (38.7-73.9); Platelet Count 261 T/CUMM (130-400); Red Blood Count 4.49 MC/CUMM (3.8-5.5); Red Cell Distribution Width 17.4 % (9.3-17.3); White Blood Count 23.3 T/CUMM (4-12)
[2022-06-19] MEDS ORDERED: ACETAMINOPHEN 500 MG TABLET PO STA (13:00)
[2022-06-19] MEDS ORDERED: ACETAMINOPHEN 650 MG SUPP RECTAL STA (13:06)
[2022-06-19 13:12] LABS: Alanine Aminotransferase 19 U/L (16-61); Albumin 3.4 G/DL (3.4-5.0); Alkaline Phosphatase 124 U/L (45-117); Aspartate Amino Transferase 20 U/L (0-37); Bilirubin,Total < 0.39 MG/DL (0.20-1.00); Blood Urea Nitrogen 23 MG/DL (7-18); Calcium 9.5 MG/DL (8.5-10.1); Carbon Dioxide 37 MMOL/L (21-32); Chloride 91 MMOL/L (98-107); Glucose 135 MG/DL (74-106); Osmolality,Calculated 273.2 MOS/KG (273-304); Sodium 134 MMOL/L (136-145); Total Protein 7.3 G/DL (6.4-8.2)
[2022-06-19 13:36] LABS: Anisocytosis 1+; Band Neutrophils 4 % (0-10); Eosinophils 2 % (0-10); Hypochromia 1+; Lymphocytes 9 % (20-55); Platelet Estimate Normal; Total Cells Counted 100
[2022-06-19] MEDS ORDERED: SODIUM CHLORIDE 0.9% 1,000 ML IV STA (14:00)
[2022-06-19] MEDS ORDERED: PIPERACILLIN/TAZOBACTAM 3,375 MG in SODIUM CHLORIDE 0.9% 100 ML IV STA (14:00)
[2022-06-19] MEDS ORDERED: VANCOMYCIN INJ 1,000 MG in SODIUM CHLORIDE 0.9% 250 ML IV STA (14:01)
[2022-06-19 14:27] LABS: Bilirubin,Urine Negative (Negative); Blood, Urine Negative (Negative); Glucose,Urine (UA) Negative (Negative); Ketones,Urine Negative (Negative); Nitrite,Urine Negative (Negative); Protein,Urine Negative (Negative); Urine Appearance Clear (Clear); Urine Color Yellow (Yellow); Urine Specific Gravity 1.015 (1.001-1.035); Urine Urobilinogen 0.2 eU/dL (<2.0)
[2022-06-19 14:34] LABS: Bacteria,Urine Occasional /HPF (Few); Hyaline Casts,Urine 5 /LPF (0-3); Mucus,Urine Occasional /LPF (Occasional); RBC,Urine 2 /HPF (0-4)
[2022-06-19] MEDS ORDERED: ACETAMINOPHEN 325 MG TABLET PO PRN (15:06)
[2022-06-19] MEDS ORDERED: ACETAMINOPHEN 500 MG TABLET PO PRN (15:18)
[2022-06-19] MEDS ORDERED: NON-FORMULARY MEDICATION (Albuterol Sulfate [Proair Hfa] 90 MCG/PUFF HFA aerosol inhaler) INH PRN (15:18)
[2022-06-19] MEDS ORDERED: ONDANSETRON 4 MG TABLET PO PRN (15:18)
[2022-06-19] MEDS ORDERED: BISACODYL 10 MG SUPP RECTAL PRN (15:18)
[2022-06-19] MEDS ORDERED: MAGNESIUM HYDROXIDE SUSP 30 ML UDCUP PO PRN (15:18)
[2022-06-19] MEDS ORDERED: OXYMETAZOLINE 0.05% NASAL SPRAY 15 ML BOTTLE BOTH NARES PRN (15:18)
[2022-06-19] MEDS ORDERED: SENNOSIDES PO PRN (15:18)
[2022-06-19] MEDS ORDERED: ALBUTEROL/IPRATROPIUM 3 ML NEB RESP TX PRN (15:18)
[2022-06-19] MEDS ORDERED: HydrOXYzine PAMOATE 25 MG CAPSULE PO PRN (15:18)
[2022-06-19] MEDS ORDERED: SODIUM CHLORIDE 0.9% 1,000 ML IV SCH (15:30)
[2022-06-19] MEDS ORDERED: LACTATED RINGERS 1,000 ML IV SCH (15:30)
[2022-06-19] MEDS ORDERED: IBUPROFEN 600 MG TABLET PO STA (15:41)
[2022-06-19] MEDS ORDERED: oxyCODONE/ACETAMINOPHEN 5-325 MG TABLET PO PRN (15:48)
[2022-06-19] MEDS ORDERED: SODIUM CHLORIDE 0.9% 500 ML IV ONE (16:50)
[2022-06-19] MEDS: INSULIN LISPRO 100 UNIT/ML SUBCUT SCH ×2 (18:01→21:05)
[2022-06-19] MEDS: BACLOFEN 10 MG TABLET PO SCH (18:12)
[2022-06-19] MEDS ORDERED: CARBOXYMETHYLCELLULOSE 1% OPH SOLN BOTH EYES PRN (19:07)
[2022-06-19] MEDS ORDERED: diphenhydrAMINE CAP 25 MG CAPSULE PO PRN (19:08)
[2022-06-19] MEDS: POLYETHYLENE GLYCOL POWDER 17 GM PACK PO SCH (21:05)
[2022-06-19] MEDS: PRIMIDONE 50 MG TABLET PO SCH (21:05)
[2022-06-19] MEDS: MENTHOL/ZINC OXIDE OINT 71 GM JAR TOP SCH (21:05)
[2022-06-19] MEDS: MAGNESIUM HYDROXIDE SUSP 30 ML UDCUP PO SCH (21:05)
[2022-06-19] MEDS: DULoxetine 30 MG CAPSULE PO SCH (21:05)
[2022-06-19] MEDS: PREGABALIN 75 MG CAPSULE PO SCH (21:05)
[2022-06-19] MEDS: MIRTAZAPINE 15 MG TABLET PO SCH (21:05)
[2022-06-19] MEDS: TAMSULOSIN 0.4 MG CAPSULE PO SCH (21:05)
[2022-06-19] MEDS: PANTOPRAZOLE 40 MG TABLET PO SCH (21:05)
[2022-06-19] MEDS: PIPERACILLIN/TAZOBACTAM 3,375 MG in SODIUM CHLORIDE 0.9% 100 ML IV SCH (22:15)
[2022-06-20] MEDS: PIPERACILLIN/TAZOBACTAM 3,375 MG in SODIUM CHLORIDE 0.9% 100 ML IV SCH ×3 (05:00→22:11)
[2022-06-20 05:22] LABS: Basophils # 0.1 10*3/uL (0.0-0.2); Basophils % 0.4 % (0.0-0.8); Eosinophils # 0.6 10*3/uL (0.0-0.87); Eosinophils % 2.6 % (0.00-10.9); Hematocrit 31.4 VOL% (42.0-52.0); Hemoglobin 9.8 GM/DL (14.0-18.0); Immature Granulocytes % 0.8 %; Immature Granulocytes Absolute 0.18 #; Lymphocytes # 0.9 10*3/uL (1.4-4.0); Lymphocytes % 4.2 % (21.2-54.2); Mean Corpuscular HGB Conc 31.2 GM/DL (32-36); Mean Corpuscular Volume 83.7 FL (87-102); Mean Platelet Volume 12.5 FL (9.6-12.0); Monocytes # 0.6 10*3/uL (0.11-0.8); Monocytes % 2.9 % (1.7-12.7); Neutrophils % 89.1 % (38.7-73.9); Platelet Count 215 T/CUMM (130-400); Red Blood Count 3.75 MC/CUMM (3.8-5.5); Red Cell Distribution Width 17.9 % (9.3-17.3); White Blood Count 21.8 T/CUMM (4-12)
[2022-06-20 05:45] LABS: Albumin 2.6 G/DL (3.4-5.0); Bilirubin,Total 0.5 MG/DL (0.20-1.00); Osmolality,Calculated 275.2 MOS/KG (273-304); Potassium 4.6 MMOL/L (3.5-5.1); Total Protein 6.2 G/DL (6.4-8.2)
[2022-06-20 06:27] LABS: Eosinophils 2 % (0-10); Hypochromia Slight; Lymphocytes 3 % (20-55); Microcytosis Slight; Platelet Estimate Adequate; Total Cells Counted 100
[2022-06-20] MEDS: INSULIN LISPRO 100 UNIT/ML SUBCUT SCH ×4 (08:45→22:12)
[2022-06-20] MEDS: POLYETHYLENE GLYCOL POWDER 17 GM PACK PO SCH ×2 (09:16→21:57)
[2022-06-20] MEDS: FLUTICASONE 50 MCG NASAL SPRAY 16 GM BOTTLE BOTH NARES SCH (09:18)
[2022-06-20] MEDS: MULTIVITAMIN (BEROCCA) TABLET PO SCH (09:22)
[2022-06-20] MEDS: BACLOFEN 10 MG TABLET PO SCH ×2 (09:22→18:22)
[2022-06-20] MEDS: PANTOPRAZOLE 40 MG TABLET PO SCH ×2 (09:22→22:02)
[2022-06-20] MEDS: LINACLOTIDE 145 MCG CAPSULE PO SCH (09:22)
[2022-06-20] MEDS: ASPIRIN EC 81 MG TABLET PO SCH (09:22)
[2022-06-20] MEDS: TAMSULOSIN 0.4 MG CAPSULE PO SCH ×2 (09:23→22:02)
[2022-06-20] MEDS: LACTULOSE 20 GM/30 ML UDCUP PO SCH (09:23)
[2022-06-20] MEDS: METOCLOPRAMIDE 5 MG TABLET PO SCH (09:23)
[2022-06-20] MEDS: MENTHOL/ZINC OXIDE OINT 71 GM JAR TOP SCH ×2 (09:23→22:18)
[2022-06-20] MEDS: DILTIAZEM CD 120 MG CAPSULE PO SCH (09:29)
[2022-06-20] MEDS: PREGABALIN 75 MG CAPSULE PO SCH ×2 (09:29→22:13)
[2022-06-20] MEDS: NON-FORMULARY MEDICATION (Fluticasone Furoate-Vilanterol [Breo Ellipta] 100-25 mcg/dose Bl INH SCH (10:45)
[2022-06-20] MEDS ORDERED: diphenhydrAMINE 50 MG/1 ML VIAL IV ONE (12:30)
[2022-06-20] MEDS ORDERED: methylPREDNISolone SOD SUC 125 MG/2 ML VIAL IV ONE (12:32)
[2022-06-20] MEDS: diphenhydrAMINE 2% CREAM 28 GM TUBE TOP SCH ×3 (15:13→22:17)
[2022-06-20] MEDS: TRIAMCINOLONE 0.1% CREAM 15 GM TUBE TOP SCH ×2 (15:13→22:17)
[2022-06-20] MEDS: DULoxetine 30 MG CAPSULE PO SCH (22:02)
[2022-06-20] MEDS: MAGNESIUM HYDROXIDE SUSP 30 ML UDCUP PO SCH (22:03)
[2022-06-20] MEDS: PRIMIDONE 50 MG TABLET PO SCH (22:13)
[2022-06-20] MEDS: MIRTAZAPINE 15 MG TABLET PO SCH (22:14)
[2022-06-21] MEDS: PIPERACILLIN/TAZOBACTAM 3,375 MG in SODIUM CHLORIDE 0.9% 100 ML IV SCH ×3 (05:16→23:58)
[2022-06-21 05:59] LABS: Albumin 2.4 G/DL (3.4-5.0); Bilirubin,Total 0.4 MG/DL (0.20-1.00); Calcium 8.7 MG/DL (8.5-10.1); Osmolality,Calculated 274.4 MOS/KG (273-304); Potassium 3.7 MMOL/L (3.5-5.1); Total Protein 6.3 G/DL (6.4-8.2)
[2022-06-21 06:11] LABS: Hemoglobin 9.4 GM/DL (14.0-18.0); Immature Granulocytes % 0.7 %; Immature Granulocytes Absolute 0.06 #; Lymphocytes # 0.6 10*3/uL (1.4-4.0); Lymphocytes % 6.4 % (21.2-54.2); Mean Corpuscular HGB Conc 32.4 GM/DL (32-36); Mean Corpuscular Volume 82.6 FL (87-102); Mean Platelet Volume 12.5 FL (9.6-12.0); Monocytes # 0.2 10*3/uL (0.11-0.8); Monocytes % 2.2 % (1.7-12.7); Neutrophils % 90.7 % (38.7-73.9); Platelet Count 193 T/CUMM (130-400); Red Blood Count 3.51 MC/CUMM (3.8-5.5); Red Cell Distribution Width 17.1 % (9.3-17.3)
[2022-06-21 06:13] LABS: White Blood Count 8.5 T/CUMM (4-12)
[2022-06-21 06:39] LABS: Hypochromia Slight; Lymphocytes 7 % (20-55); Microcytosis Slight; Platelet Estimate Adequate; Total Cells Counted 100
[2022-06-21] MEDS: INSULIN LISPRO 100 UNIT/ML SUBCUT SCH ×4 (07:30→21:32)
[2022-06-21] MEDS: BACLOFEN 10 MG TABLET PO SCH ×2 (09:28→17:49)
[2022-06-21] MEDS: PREGABALIN 75 MG CAPSULE PO SCH ×2 (09:28→21:31)
[2022-06-21] MEDS: MULTIVITAMIN (BEROCCA) TABLET PO SCH (09:28)
[2022-06-21] MEDS: TAMSULOSIN 0.4 MG CAPSULE PO SCH ×2 (09:28→21:32)
[2022-06-21] MEDS: METOCLOPRAMIDE 5 MG TABLET PO SCH (09:29)
[2022-06-21] MEDS: DILTIAZEM CD 120 MG CAPSULE PO SCH (09:29)
[2022-06-21] MEDS: POLYETHYLENE GLYCOL POWDER 17 GM PACK PO SCH ×2 (09:29→21:23)
[2022-06-21] MEDS: PANTOPRAZOLE 40 MG TABLET PO SCH ×2 (09:29→21:32)
[2022-06-21] MEDS: ASPIRIN EC 81 MG TABLET PO SCH (09:29)
[2022-06-21] MEDS: MENTHOL/ZINC OXIDE OINT 71 GM JAR TOP SCH ×2 (09:29→21:32)
[2022-06-21] MEDS: LACTULOSE 20 GM/30 ML UDCUP PO SCH (09:30)
[2022-06-21] MEDS: diphenhydrAMINE 2% CREAM 28 GM TUBE TOP SCH ×3 (09:36→21:32)
[2022-06-21] MEDS: LINACLOTIDE 145 MCG CAPSULE PO SCH (09:36)
[2022-06-21] MEDS: TRIAMCINOLONE 0.1% CREAM 15 GM TUBE TOP SCH ×2 (09:36→21:32)
[2022-06-21] MEDS: FLUTICASONE 50 MCG NASAL SPRAY 16 GM BOTTLE BOTH NARES SCH (09:36)
[2022-06-21] MEDS: NON-FORMULARY MEDICATION (Fluticasone Furoate-Vilanterol [Breo Ellipta] 100-25 mcg/dose Bl INH SCH (09:45)
[2022-06-21] MEDS: MAGNESIUM HYDROXIDE SUSP 30 ML UDCUP PO SCH (21:23)
[2022-06-21] MEDS: PRIMIDONE 50 MG TABLET PO SCH (21:31)
[2022-06-21] MEDS: MIRTAZAPINE 15 MG TABLET PO SCH (21:31)
[2022-06-21] MEDS: DULoxetine 30 MG CAPSULE PO SCH (21:32)
[2022-06-22 05:27] LABS: Basophils # 0.1 10*3/uL (0.0-0.2); Basophils % 0.7 % (0.0-0.8); Eosinophils # 0.5 10*3/uL (0.0-0.87); Eosinophils % 5.7 % (0.00-10.9); Hematocrit 31.1 VOL% (42.0-52.0); Immature Granulocytes % 0.9 %; Immature Granulocytes Absolute 0.07 #; Lymphocytes # 1.3 10*3/uL (1.4-4.0); Lymphocytes % 15.7 % (21.2-54.2); Mean Corpuscular HGB Conc 32.2 GM/DL (32-36); Mean Corpuscular Volume 83.8 FL (87-102); Mean Platelet Volume 12.1 FL (9.6-12.0); Monocytes # 0.8 10*3/uL (0.11-0.8); Monocytes % 9.7 % (1.7-12.7); Neutrophils % 67.3 % (38.7-73.9); Platelet Count 196 T/CUMM (130-400); Red Blood Count 3.71 MC/CUMM (3.8-5.5); Red Cell Distribution Width 17.2 % (9.3-17.3); White Blood Count 8.1 T/CUMM (4-12)
[2022-06-22 05:54] LABS: Alanine Aminotransferase 16 U/L (16-61); Albumin 2.6 G/DL (3.4-5.0); Alkaline Phosphatase 73 U/L (45-117); Aspartate Amino Transferase 20 U/L (0-37); Bilirubin,Total < 0.39 MG/DL (0.20-1.00); Blood Urea Nitrogen 15 MG/DL (7-18); Carbon Dioxide 34 MMOL/L (21-32); Chloride 99 MMOL/L (98-107); Glucose 119 MG/DL (74-106); Potassium 3.4 MMOL/L (3.5-5.1); Sodium 136 MMOL/L (136-145); Total Protein 6.5 G/DL (6.4-8.2)
[2022-06-22] MEDS ORDERED: POTASSIUM CHLORIDE 20 MEQ TABLET PO ONE ×2 (08:26→12:00)
[2022-06-22] MEDS: POLYETHYLENE GLYCOL POWDER 17 GM PACK PO SCH ×2 (09:52→22:36)
[2022-06-22] MEDS: FLUTICASONE 50 MCG NASAL SPRAY 16 GM BOTTLE BOTH NARES SCH (09:52)
[2022-06-22] MEDS: LACTULOSE 20 GM/30 ML UDCUP PO SCH (09:52)
[2022-06-22] MEDS: ASPIRIN EC 81 MG TABLET PO SCH (09:53)
[2022-06-22] MEDS: DILTIAZEM CD 120 MG CAPSULE PO SCH (09:53)
[2022-06-22] MEDS: TAMSULOSIN 0.4 MG CAPSULE PO SCH ×2 (09:53→22:31)
[2022-06-22] MEDS: BACLOFEN 10 MG TABLET PO SCH ×2 (09:53→16:40)
[2022-06-22] MEDS: METOCLOPRAMIDE 5 MG TABLET PO SCH (09:53)
[2022-06-22] MEDS: MULTIVITAMIN (BEROCCA) TABLET PO SCH (09:53)
[2022-06-22] MEDS: PREGABALIN 75 MG CAPSULE PO SCH ×2 (09:53→22:32)
[2022-06-22] MEDS: PANTOPRAZOLE 40 MG TABLET PO SCH ×2 (09:53→22:31)
[2022-06-22] MEDS: INSULIN LISPRO 100 UNIT/ML SUBCUT SCH ×4 (09:54→22:32)
[2022-06-22] MEDS: PIPERACILLIN/TAZOBACTAM 3,375 MG in SODIUM CHLORIDE 0.9% 100 ML IV SCH ×3 (09:54→23:47)
[2022-06-22] MEDS: LINACLOTIDE 145 MCG CAPSULE PO SCH (09:55)
[2022-06-22] MEDS: TRIAMCINOLONE 0.1% CREAM 15 GM TUBE TOP SCH ×2 (09:55→22:37)
[2022-06-22] MEDS: diphenhydrAMINE 2% CREAM 28 GM TUBE TOP SCH ×3 (09:55→22:38)
[2022-06-22] MEDS: MENTHOL/ZINC OXIDE OINT 71 GM JAR TOP SCH ×2 (09:55→22:37)
[2022-06-22] MEDS: NON-FORMULARY MEDICATION (Fluticasone Furoate-Vilanterol [Breo Ellipta] 100-25 mcg/dose Bl INH SCH (09:56)
[2022-06-22] MEDS ORDERED: FUROSEMIDE 40 MG/4 ML VIAL IV ONE (13:22)
[2022-06-22] MEDS: DULoxetine 30 MG CAPSULE PO SCH (22:30)
[2022-06-22] MEDS: MIRTAZAPINE 15 MG TABLET PO SCH (22:31)
[2022-06-22] MEDS: PRIMIDONE 50 MG TABLET PO SCH (22:31)
[2022-06-22] MEDS: MAGNESIUM HYDROXIDE SUSP 30 ML UDCUP PO SCH (22:36)
[2022-06-23 05:05] LABS: Basophils # 0.1 10*3/uL (0.0-0.2); Basophils % 1.2 % (0.0-0.8); Eosinophils # 0.6 10*3/uL (0.0-0.87); Eosinophils % 7.2 % (0.00-10.9); Hemoglobin 10.7 GM/DL (14.0-18.0); Immature Granulocytes % 1.2 %; Lymphocytes # 1.4 10*3/uL (1.4-4.0); Lymphocytes % 17.3 % (21.2-54.2); Mean Corpuscular HGB Conc 31.5 GM/DL (32-36); Mean Corpuscular Volume 84.2 FL (87-102); Mean Platelet Volume 12.6 FL (9.6-12.0); Monocytes # 0.9 10*3/uL (0.11-0.8); Monocytes % 10.6 % (1.7-12.7); Neutrophils % 62.5 % (38.7-73.9); Platelet Count 227 T/CUMM (130-400); Red Blood Count 4.04 MC/CUMM (3.8-5.5); Red Cell Distribution Width 17.5 % (9.3-17.3); White Blood Count 8.3 T/CUMM (4-12)
[2022-06-23 05:28] LABS: Alanine Aminotransferase 16 U/L (16-61); Albumin 2.7 G/DL (3.4-5.0); Alkaline Phosphatase 80 U/L (45-117); Aspartate Amino Transferase 17 U/L (0-37); Bilirubin,Total < 0.39 MG/DL (0.20-1.00); Blood Urea Nitrogen 15 MG/DL (7-18); Calcium 9.3 MG/DL (8.5-10.1); Carbon Dioxide 37 MMOL/L (21-32); Chloride 96 MMOL/L (98-107); Glucose 111 MG/DL (74-106); Osmolality,Calculated 271.1 MOS/KG (273-304); Potassium 4.1 MMOL/L (3.5-5.1); Sodium 135 MMOL/L (136-145); Total Protein 6.6 G/DL (6.4-8.2)
[2022-06-23] MEDS: INSULIN LISPRO 100 UNIT/ML SUBCUT SCH ×4 (08:11→23:05)
[2022-06-23] MEDS: NON-FORMULARY MEDICATION (Fluticasone Furoate-Vilanterol [Breo Ellipta] 100-25 mcg/dose Bl INH SCH (08:46)
[2022-06-23] MEDS: POLYETHYLENE GLYCOL POWDER 17 GM PACK PO SCH ×2 (09:41→22:47)
[2022-06-23] MEDS: METOCLOPRAMIDE 5 MG TABLET PO SCH (09:42)
[2022-06-23] MEDS: TAMSULOSIN 0.4 MG CAPSULE PO SCH ×2 (09:42→22:49)
[2022-06-23] MEDS: PANTOPRAZOLE 40 MG TABLET PO SCH ×2 (09:42→22:49)
[2022-06-23] MEDS: DILTIAZEM CD 120 MG CAPSULE PO SCH (09:42)
[2022-06-23] MEDS: LINACLOTIDE 145 MCG CAPSULE PO SCH (09:42)
[2022-06-23] MEDS: PREGABALIN 75 MG CAPSULE PO SCH ×2 (09:42→22:49)
[2022-06-23] MEDS: MULTIVITAMIN (BEROCCA) TABLET PO SCH (09:42)
[2022-06-23] MEDS: ASPIRIN EC 81 MG TABLET PO SCH (09:42)
[2022-06-23] MEDS: PIPERACILLIN/TAZOBACTAM 3,375 MG in SODIUM CHLORIDE 0.9% 100 ML IV SCH ×3 (09:43→23:51)
[2022-06-23] MEDS: LACTULOSE 20 GM/30 ML UDCUP PO SCH (09:43)
[2022-06-23] MEDS: diphenhydrAMINE 2% CREAM 28 GM TUBE TOP SCH ×3 (09:44→22:53)
[2022-06-23] MEDS: TRIAMCINOLONE 0.1% CREAM 15 GM TUBE TOP SCH ×2 (09:44→22:54)
[2022-06-23] MEDS: MENTHOL/ZINC OXIDE OINT 71 GM JAR TOP SCH ×2 (09:44→22:53)
[2022-06-23] MEDS: FLUTICASONE 50 MCG NASAL SPRAY 16 GM BOTTLE BOTH NARES SCH (09:44)
[2022-06-23] MEDS: BACLOFEN 10 MG TABLET PO SCH ×2 (09:47→17:20)
[2022-06-23] MEDS: DULoxetine 30 MG CAPSULE PO SCH (22:50)
[2022-06-23] MEDS: MAGNESIUM HYDROXIDE SUSP 30 ML UDCUP PO SCH (22:53)
[2022-06-23] MEDS: PRIMIDONE 50 MG TABLET PO SCH (23:05)
[2022-06-23] MEDS: MIRTAZAPINE 15 MG TABLET PO SCH (23:05)
[2022-06-24 05:20] LABS: Basophils # 0.2 10*3/uL (0.0-0.2); Basophils % 1.7 % (0.0-0.8); Eosinophils # 0.7 10*3/uL (0.0-0.87); Eosinophils % 7.5 % (0.00-10.9); Hematocrit 36.6 VOL% (42.0-52.0); Hemoglobin 11.5 GM/DL (14.0-18.0); Immature Granulocytes % 1.1 %; Lymphocytes # 1.6 10*3/uL (1.4-4.0); Lymphocytes % 17.4 % (21.2-54.2); Mean Corpuscular HGB Conc 31.4 GM/DL (32-36); Mean Corpuscular Volume 83.4 FL (87-102); Neutrophils % 61.3 % (38.7-73.9); Platelet Count 210 T/CUMM (130-400); Red Blood Count 4.39 MC/CUMM (3.8-5.5); Red Cell Distribution Width 17.5 % (9.3-17.3); White Blood Count 9.2 T/CUMM (4-12)
[2022-06-24 05:48] LABS: Alanine Aminotransferase 18 U/L (16-61); Albumin 2.5 G/DL (3.4-5.0); Alkaline Phosphatase 69 U/L (45-117); Aspartate Amino Transferase 16 U/L (0-37); Bilirubin,Total < 0.39 MG/DL (0.20-1.00); Blood Urea Nitrogen 15 MG/DL (7-18); Calcium 9.2 MG/DL (8.5-10.1); Carbon Dioxide 34 MMOL/L (21-32); Chloride 99 MMOL/L (98-107); Glucose 101 MG/DL (74-106); Osmolality,Calculated 273.8 MOS/KG (273-304); Potassium 4.3 MMOL/L (3.5-5.1); Sodium 137 MMOL/L (136-145); Total Protein 6.6 G/DL (6.4-8.2)
[2022-06-24] MEDS: POLYETHYLENE GLYCOL POWDER 17 GM PACK PO SCH (09:50)
[2022-06-24] MEDS: BACLOFEN 10 MG TABLET PO SCH (09:51)
[2022-06-24] MEDS: PANTOPRAZOLE 40 MG TABLET PO SCH (09:51)
[2022-06-24] MEDS: PREGABALIN 75 MG CAPSULE PO SCH (09:51)
[2022-06-24] MEDS: ASPIRIN EC 81 MG TABLET PO SCH (09:51)
[2022-06-24] MEDS: METOCLOPRAMIDE 5 MG TABLET PO SCH (09:51)
[2022-06-24] MEDS: DILTIAZEM CD 120 MG CAPSULE PO SCH (09:51)
[2022-06-24] MEDS: LACTULOSE 20 GM/30 ML UDCUP PO SCH (09:52)
[2022-06-24] MEDS: TAMSULOSIN 0.4 MG CAPSULE PO SCH (09:52)
[2022-06-24] MEDS: PIPERACILLIN/TAZOBACTAM 3,375 MG in SODIUM CHLORIDE 0.9% 100 ML IV SCH (09:52)
[2022-06-24] MEDS: MULTIVITAMIN (BEROCCA) TABLET PO SCH (09:52)
[2022-06-24] MEDS: MENTHOL/ZINC OXIDE OINT 71 GM JAR TOP SCH (09:53)
[2022-06-24] MEDS: FLUTICASONE 50 MCG NASAL SPRAY 16 GM BOTTLE BOTH NARES SCH (09:53)
[2022-06-24] MEDS: diphenhydrAMINE 2% CREAM 28 GM TUBE TOP SCH (09:53)
[2022-06-24] MEDS: TRIAMCINOLONE 0.1% CREAM 15 GM TUBE TOP SCH (09:53)
[2022-06-24] MEDS: LINACLOTIDE 145 MCG CAPSULE PO SCH (09:58)
[2022-06-24] MEDS ORDERED: FUROSEMIDE 20 MG/2 ML VIAL IM ONE (10:47)
[2022-06-24] MEDS: INSULIN LISPRO 100 UNIT/ML SUBCUT SCH ×2 (11:10→12:43)
[2022-06-24] MEDS: NON-FORMULARY MEDICATION (Fluticasone Furoate-Vilanterol [Breo Ellipta] 100-25 mcg/dose Bl INH SCH (11:10)
[2022-06-24] MEDS ORDERED: FUROSEMIDE 20 MG/2 ML VIAL IV ONE (12:37)
[2022-06-24 12:50] VITALS: BP 130/53
== END 2022-06-24 12:42 | DRG 194 ==
LOC: N.ED 12:04 → SUATTDRO 15:06 → N.EDINP 15:06 → N.TELES 18:53
PROVIDERS: ADMIT Internal Medicine; ATTEND Internal Medicine